=== PATIENT | female | born 2005 | race Two or more races ===

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

== ENCOUNTER 2024-02-18 11:01 | Emergency (ER) | payer OTHER, SELFPAY ==
[2024-02-18 11:04] VITALS: BP 157/48; PULSE 78; RESP 16; TEMP 36.2; O2SAT 100; BMI 37.6
--- NOTE | 2024-02-18 11:08 | ED_ITS ---
HPI - Female Genitourinary General Chief complaint: Skin/Abscess/Foreign Body Stated complaint: cyst Time Seen by Provider: 02/18/24 11:18 Source: patient, RN notes reviewed and old records reviewed Mode of arrival: ambulatory Limitations: no limitations History of Present Illness HPI Narrative: 18 year old female with no significant pmhx presents to the ED today for evaluation of vaginal cyst x2-3 days. Notes the cyst is isolated to the right labia. Admits to increase in size and pain over the last few days. She has been taking Motrin at home with little relief. Last dose last night. Endorses history of bartholin gland abscess 3-4 months ago which required I&D and outpatient antibiotic therapy [place]. Reports taking abx to completion. Reports this feels similar to previous abscess. Denies fevers, chills, dysuria, drainage from the cyst, hematuria vaginal discharge, vaginal lesions/ ulcers. Related Data Home Medications ?Medication ?Instructions ?Recorded ?Confirmed albuterol sulfate 90 mcg/actuation 2 puff inhalation Q6H PRN 02/22/22 06/15/22 aerosol inhaler cholecalciferol (vitamin D3) 50 50 mcg PO DAILY 02/22/22 06/15/22 mcg (2,000 unit) capsule Previous Rx's ?Medication ?Instructions ?Recorded ibuprofen 600 mg tablet 600 mg PO Q8H PRN pain #60 tabs 06/15/22 nystatin 100,000 unit/gram topical 1 appl topical BID #30 grams 05/05/23 powder cephalexin 500 mg capsule 500 mg PO QID 10 days #40 caps 02/18/24 Allergies Allergy/AdvReac Type Severity Reaction Status Date / Time Penicillins [PENICILLINS] Allergy Mild HIVES Verified 02/18/24 11:08 Review of Systems Review of Systems: Constitutional: No fever, chills, fatigue, night sweats, weight changes ENT/Mouth: No ear pain, hearing loss, nasal congestion, sinus pain, rhinorrhea, sore throat Eyes: No eye pain, swelling, redness, vision changes, discharge Cardio: No chest pain, palpitations, RAMIREZ, orthopnea, peripheral edema Pulm: No SOB, cough, sputum, wheezing, dyspnea, hemoptysis GI: No nausea, vomiting, hematemesis, abdominal pain, diarrhea, constipation, hematochezia, melena : No irregular bleeding, dysuria, frequency, urgency, hesitancy, hematuria, flank pain, urinary flow changes, urinary incontinence or retention, +vaginal cyst MSK: No back pain, neck pain, joint pain, myalgias Skin: No lesions, rashes Neuro: No weakness, numbness, paresthesias, LOC, dizziness, headache Psych: No anxiety/panic, depression, SI/HI, AH/VH All other systems reviewed and are negative. [facility] Past Medical History Attestation statement: The following information was validated with the patient. Source: old records reviewed and nursing notes reviewed Medical History Asthma Social History Social History Household Members Other:: mom Housing: Apartment Patient Tobacco Use Status: Never used Tobacco Advance Directives: No Advance Directives Information Provided: Yes Do you have a plan to hurt others: No Plan Physical Exam Vital Signs: Vital Signs: Last Vital Signs Temp 98.4 F 02/18/24 15:05 Pulse 82 02/18/24 15:05 Resp 16 02/18/24 15:05 BP 112/69 02/18/24 15:05 Pulse Ox 97 02/18/24 15:05 O2 Del Method Room Air 02/18/24 15:05 BMI result Body Mass Index 37.6 Vital signs stable. afebrile. Const: General: cooperative, healthy appearing, comfortable and no acute distress Orientation/consciousness: patient oriented x3 Limitations: no limitations HEENT: Head: Yes normal to inspection, Yes No palpable skull fracture present, Yes normocephalic and Yes atraumatic Eyes: General: appearance normal, both eyes and all related structures Pupils: Equal, round and reactive pupils present Neck: Neck: Yes normal visual inspection Resp: Effort & Inspection: normal respiratory effort and able to speak in complete sentences Auscultation: clear to auscultation bilaterally Cardio: Rate: regular rate Rhythm: regular rhythm GI: Inspection: Yes normal to inspection : Other: + Shanda Thao RN in room during sensiti ve exam + External genitalia with 4cm enlarged m ass and overlying erythema/ warmth noted to posterior aspect of right labia. ttp. fluctuant. General: Yes no CVA tenderness Back/Spine/Pelvis: Back: no CVA tenderness Skin: General skin exam: no rashes or lesions noted Neuro: General: patient oriented x3 and gait normal Cranial nerves: Yes Equal, round and reactive pupils present Course Course Course Narrative: This is an RME performed by Shanta Albarran CNP: Additional HPI, ROS, PE not included below will be deferred to primary provider. Patient is a 18-year-old female who presents emergency department for evaluation of a reported recurrent Bartholin cyst on the right side. Reports incision and drainage approximately 3 or 4 weeks ago out of state, with recurrence over the past 2-3 days. Physical exam: Deferred in triage Plan: Placed in waiting room pending bed availability Reevaluation(s) Reevaluation #1: 8410-- Incision and drainage performed on right Bartholin gland abscess. 10 mL of lidocaine injected into the area. 2 cm linear incision made with immediate expression of purulent discharge. All discharge expressed from incision site. I was able to express approx 10ccs of purulent drainage. Abscess explored and all loculations broken. The area was irrigated extensively and left open. Patient tolerate procedure well. Routine swab/ gram stain sent to lab. Advised patient that we will call her if the antibiotic needs to be adjusted. Will give patient dose of Keflex in ED and send course to pharmacy. She does have a non- anaphylactic penicillin allergy however states that she has previously tolerated keflex. Patient has remained stable throughout ED visit today. Discussed worrisome signs and symptoms and when to return to the ED. All questions answered at this time. Patient is agreeable with disposition and stable for discharge. Medications Administered Discontinued Medications Generic Name Dose Route Start Last Admin Trade Name Sofía PRN Reason Stop Dose Admin Acetaminophen 975 mg 02/18/24 12:16 02/18/24 12:29 Acetaminophen 325 Mg Tablet PO 02/18/24 12:17 975 mg ONCE ONE Administration Cephalexin HCl 500 mg 02/18/24 14:45 02/18/24 14:59 Cephalexin 500 Mg Capsule PO 02/18/24 14:46 500 mg ONCE ONE Administration Lidocaine HCl 5 ml 02/18/24 12:15 02/18/24 12:31 Lidocaine Hcl 1 % Mpf 5 Ml Vial INFILTRATI 02/18/24 12:16 5 ml ONCE ONE Administration Lidocaine HCl 5 ml 02/18/24 12:16 02/18/24 12:31 Lidocaine Hcl 1 % Mpf 5 Ml Vial INFILTRATI 02/18/24 12:17 5 ml ONCE ONE Administration Lorazepam 0.5 mg 02/18/24 12:15 02/18/24 12:29 Lorazepam 0.5 Mg Tablet PO 02/18/24 12:16 0.5 mg ONCE ONE Administration Medical Decision Making Medical Decision Making MDM Narrative: 18 year old female with no significant pmhx presents to the ED today for evaluation of vaginal cyst x2-3 days. Vital signs are stable. She is nontoxic appearing and in NAD. Lying comfortably on the exam bed. On exam, external genitalia with 4cm enlarged mass and overlying erythema/ warmth noted to posterior aspect of right labia. ttp. fluctuant. Abdomen is soft, ND/NT. no rebound or gaurding. Differential diagnosis includes bartholin cyst, bartholin abscess, cellulitis. Unlikely UTI, herpes simplex, herpes zoster, syphillis, vaginitis, malignancy, hematoma, genital warts. Plan for I&D. Differential Diagnosis Differential Diagnoses: The differential diagnosis associated with the presentation includes as above. Admission/Observation not indicated. Independent Historian Clinical information obtained from an independent historian. History obtained from or confirmed by: Parent (mother) and Other (brother) External Record Review External record reviewed: Inpatient record Prescription Management I considered prescription management with: Pain Medication and Antibiotic (keflex) Social Determinants Patient?s care significantly limited by Social Determinants of Health including: Other Social Determinant of Health Procedures Abscess I/D Site: bartholin's gland Side (if applicable): right Local Anesthetic: lidocaine 1% Amount of anesthesia used (mL): 10 Technique: incised with blade Amount of fluid expressed (mL): 10 Sent for culture/gram staining?: Yes Irrigation: Yes Packing used?: none Critical Care Time Critical Care Time Critical Care Time: No Discharge Plan Discharge Clinical Impression: Abscess of right Bartholin's gland, Encounter for incision and drainage procedure Patient Disposition: Home, Self-Care Instructions: Abscess (ED), Incision and Drainage (ED) Additional Instructions: You were evaluated in the ED today for Bartholin gland abscess. The abscess was drained. A swab of the drainage was sent to the lab for further testing. You will be called with any positive or concerning results. The area was left open to allow for further healing/ drainage. Continue to wear feminine pads to catch any further drainage. You were given one dose of Keflex in the ED. This is an antibiotic. Take this 4 times daily for the next 7 days for infection. Please take this with food. Take this to completion. Make sure you are applying warm compresses/soaks to the area to help with healing/ drainage. Take tylenol and ibuprofen at home for pain/ discomfort. Follow up with OBGYN as cyst will likely have to be removed. Follow up with PCP as needed. Return to the ED with new or worsening symptoms such as fever, chills, nausea or vomiting, increased redness or pussy drainage from the site. In the case of an emergency call 911. Prescriptions: New cephalexin 500 mg capsule 500 mg PO QID 10 Days Qty: 40 0RF No Action nystatin 100,000 unit/gram powder 1 appl topical BID Qty: 30 0RF cholecalciferol (vitamin D3) 50 mcg (2,000 unit) capsule 50 mcg PO DAILY albuterol sulfate 90 mcg/actuation HFA aerosol inhaler 2 puff inhalation Q6H PRN ibuprofen 600 mg tablet 600 mg PO Q8H PRN (Reason: pain) Qty: 60 1RF Referrals: Zaina Clark MD [Primary Care Provider] - Stand Alone Forms: Work/School Release Interventions: ED Discharge Assessment Last Done: 02/18/24 15:35 Discharge Date/Time: 02/18/24 15:36 Print Language: Sami
[2024-02-18] MEDS: Acetaminophen 325 MG TABLET 975 MG PO (12:29)
[2024-02-18] MEDS: LORazepam 0.5 MG TABLET PO (12:29)
[2024-02-18] MEDS: Lidocaine HCl 1 % MPF 5 ML VIAL INFILTRATI ×2 (12:31)
[2024-02-18] MEDS: cephALEXin 500 MG CAPSULE PO (14:59)
[2024-02-18 15:05] VITALS: BP 112/69; PULSE 82; RESP 16; TEMP 36.9; O2SAT 97
[2024-02-18 15:35] VITALS: BP 112/69; PULSE 82; RESP 16; TEMP 36.9; O2SAT 97
== END 2024-02-18 15:36 | disposition home or self-care (01) ==
PROVIDERS: Emergency Provider Emergency Medicine; PCP Internal Medicine
DX: N75.1 Abscess of Bartholin's gland (principal); Z88.0 Allergy status to penicillin
CPT/HCPCS: 56420; 87070; 87205; 99283; 99284

== ENCOUNTER 2024-11-17 18:04 | Emergency (ER) | payer OTHER, SELFPAY ==
--- OUTSIDE RECORDS SUMMARY | 2024-11-17 20:08 | XMS_ITS | Encounter Summary ---
Author Organization [facility] Address [address] [place] [address] Phone Care Team Providers Care Laser Systems Engineer Name Role Phone Provider, Pnada RIDDLE Primary Care Provider [phone] Encounter Details Date Type Department Care Team (Late st Contact Info) Description 06/29/2012 Documentation EM Family Medicine [address] [place] [address] Family Medicine, Physician [address] [place] [address] Social History Tobacco Use Types Packs/Day Years Used Date Smoking Tobacco: Never Assessed Comments Unknown Sex and Gender Information Value Date Recorded Sex Assigned at Female 04/24/2020 12:36 PM EDT Legal Sex Female 5:06 PM EDT Gender Identity Female 04/24/2020 12:36 PM EDT Sexual Orientation Straight 04/24/2020 12 :36 PM EDT documented as of this encounter Plan of Treatment Not on file documented as of this encounter Visit Diagnoses Not on filedocumented in this encounter Care Teams Laser Systems Engineer Relationship Specialty Start Date End Date Provider, MD [address] [place] [address] PCP - General Pediatrics 11/14/22 05/09/24 documented as of this encounter
--- OUTSIDE RECORDS SUMMARY | 2024-11-17 20:08 | XMS_ITS | Clinical Summary ---
Author Organization [address] Address [address] [place] [address] Phone Care Team Providers Care Veterinary Microbiologist Name Role Phone Physician, No Pcp Primary Care Provider Unavaila ble Allergies Active Allergy Reactions Criticality Noted Date Comments Penicillin V Hives 10/23/2024 Hard to breathe Medications Medication Sig Dispensed Refills Start Date End Date Status clotrimazole (LOTRIMIN) 1 % cream Apply 1 Application topically 2 (two) times a day. APPLY TO AFFECTED AREA 09/21/2024 Active vitamin iron fum-folic acid 27-0.8 mg per tablet Take 1 tablet by mouth 1 (one) time each day. Active folic acid-vitamin B complex-vitamin X-uhwiebpd-gxpt (DIALYVITE) 3-70-15 mg-mcg-mg tablet Take 1 tablet by mouth 1 (one) time each day. Active Encounters Date Type Department Care Team Description 10/23/2024 10:45 AM EST Office Visit Obstetrics and Gynecology [address] [phone] Lory Crockett CNM 11 weeks gestation of (Primary Dx); Missed period from Last 3 Months Social History Tobacco Use Types Packs/Day Years Used Date Smoking Tobacco: Never Smokeless Tobacco: Never Alcohol Use Standard Drinks/Week Comments Not Currently 0 (1 standard drink = 0.6 oz pur e alcohol) before Estimated Date of Delivery Comme nts Yes 05/13/2025 Sex and Gender Information Value Date Recorded Sex Assigned at Not on file Gender Identity Not on file Sexual Orientation Not on file Job Start Date Occupation Industry Not on file Not on file Not on file Obstetrics History Para Term AB IAB SAB Ectopic Multiple Livin g Live Births 1 Date Outcome GA Total Labor Labor/2nd/3rd Weight Sex Type Anes PTL Jennifer A1 A5 Name Clin Current Last Filed Vital Signs Vital Sign Reading Time Taken Comments Blood Pressure 125/71 10/23/2024 11:05 AM EST Pulse 81 10/23/2024 11:05 AM EST Temperature - - Respiratory Rate 14 10/23/2024 11:0 5 AM EST Oxygen Saturation - - Inhaled Oxygen Concentration - - Weight 86.1 kg (189 lb 12.8 oz) 025 11:05 AM EST Height 151.1 cm (4' 11.5 ) 10/23/2024 1 1:05 AM EST Body Mass Index 37.69 10/23/2024 11:05 AM EST Plan of Treatment Health Maintenance Due Date Last Done Comments Gonorrhea/Chlamydia Screening 2004 Pneumococcal Vaccine: Pediatrics (0 to 5 Years) and At-Risk Patients (6 to 64 Years) (1 of 1 - PPSV23 or PCV20) 02/24/2010 09/30/2005, 2004, 2004, Additional history exists COVID-19 Vaccine ( - season) 2024 Influenza Vaccine (#1) 2024 8, 08/25/2016, 08/14/2015, Additional history exists Annual Well Child Visit (3-21 years old) 09/27/2024 04/26/2021, 04/24/2020, 03/22/2019, Additional history exists Depression Screening 09/27/2024 HIV Screening 09/27/2024 Hepatitis C Screening 09/27/2024 Social Influencers of Health Screening 09/27/2024 DTaP,Tdap,and Td Vaccines (7 - Td or Tdap) 08/14/2025 08/14/2015, 04/21/2009, 09/30/2005, Additional history exists Hepatitis B Vaccines Completed 2004, 2004, 2004, Additional history exists HIB Vaccines Completed 09/30/2005, 09/15, 2004, Additional history exists IPV Vaccines Completed 04/21/2009, 09/15, 2004, Additional history exists Hepatitis A Vaccines Completed 08/14/2015, 08/14/20 14 HPV Vaccines Completed 11/09/2017, 08/25/2016 Meningococcal ACWY Vaccine Completed 04/24/2020, RSV Immunization Patients Under 20 months Aged Out No longer eligible based on patient's age to complete this topic Procedures Procedure Name Priority Date/Time Associated Diagnosis Comments POC , URINE DIAGNOSTIC Routine 10/23/2024 11:08 AM EST Missed period from Last 3 Months Results * (ABNORMAL) POC , urine manually resulted (10/23/2024 11:08 AM EST) HCG, Ur POC Positive(A ) Negative POC hCG Int QC Pass? Yes Yes Urine Urine specimen obtained by clean catch procedure / Unknown 10/23/2024 11:08 AM EST Lory Bon SPANGLER POINT OF CARE TEST E NTER/EDIT ORDERABLES from Last 3 Months Care Teams Veterinary Microbiologist Relationship Specialty Start Date End Date Physician, No Pcp PCP - General 09/27/24
--- OUTSIDE RECORDS SUMMARY | 2024-11-17 20:08 | XMS_ITS | Encounter Summary ---
Author Organization [facility] Address [address] [place] [address] Phone Care Team Providers Care [facility] Sales Name Role Phone Provider, Panda RIDDLE Primary Care Provider [phone] Encounter Details Date Type Department Care Team (Late st Contact Info) Description 06/29/2012 Documentation EM Family Medicine [address] [place] [address] Family Medicine, Physician [address] [place] [address] Social History Tobacco Use Types [...] on filedocumented in this encounter Care Teams [facility] Sales Relationship Specialty Start Date End Date Provider, MD [address] [place] [address] PCP - General Pediatrics 11/14/22 05/09/24 documented as of this encounter
--- OUTSIDE RECORDS SUMMARY | 2024-11-17 20:09 | XMS_ITS | Continuity of Care Document ---
Author Organization [facility] ter Address [address] [place] [address]- Care Team Providers Care Guinea Pig Breeder Name Role Phone Not on Staff, PCP Primary Care Physician Unavail able Encounter [facility] ACCT R [id number] Date(s): 11/15/24 - 11/15/[address] [address]- Discharge Disposition: A-D/C Home Attending Physician: Alondra Plascencia MD Admitting Physician: Alondra Plascencia MD Referring Physician: Not on Staff, Referring MD Encounter Type: Disch ES Allergies, Adverse Reactions, Alerts Substance Criticality Severity Reaction Reaction Severity Status penicillins Active Medications lidocaine 0.5% topical gel 1 application, Topically, 2 times a day, use as needed and prior to your appt, # 120 Gm, 0 Refills,Maintenance, 11/15/24 8:00:00 PM EST, Gel, [id number], Partial fill upon patient request if the prescription is for a schedule II opioid drug., 1 application Topically 2 times a day,Instr:use as needed and prior to your appt, 158, cm, 11/15/24 13:48:00 EST, Height, 87.6, kg, 11/15/24 13:48:00 EST, Dry Weight Start Date: 11/15/24 Status: Ordered Quantity: 120.0 Unit: g Repeat number: 1 Multivitamins with Folic Acid 0.4 mg oral tablet 1 tablet, By Mouth, Daily, # 100 tablet, 0 Refills, Maintenance, 09/21/24 5:04:00 PM EST, Tablet, [id number], Partial fill upon patient request if the prescription is for a schedule II opioid drug., 1 tablet By Mouth Daily, 157, cm, 09/21/24 14:05:00 EST, Height, 84, kg, 09/21/24 14:05:00 EST, Dry Weight Start Date: 09/21/24 Status: Ordered Quantity: 100.0 Unit: tablet Repeat number: 1 Multivitamins with Folic Acid 1 mg oral tablet 1 tablet, By Mouth, Daily, # 100 tablet, 2 Refills, Maintenance, 10/03/24 11:01:00 AM EST, [facility] #[id number], Partial fill upon patient request if the prescription is for a schedule II opioid drug.,1 tablet By Mouth Daily, 157, cm, 09/21/24 17:27:00 EST, Height, 84, kg, 09/21/24 17:27:00 EST, DryWeight Start Date: 10/03/24 Status: Ordered Quantity: 100.0 Unit: tablet Repeat number: 3 Vitamin D3 2000 intl units oral capsule 1 capsule = 50 mcg, By Mouth, Daily, # 90 capsule, 1 Refills, Maintenance, 10/07/24 4:33:00 PM EST,[facility] #[id number], Partial fill upon patient request if the prescription is for a schedule II opioid drug., 157, cm, 10/03/24 12:04:00 EST, Height, 83.3, kg, 10/03/24 12:00:00 EST, Dry Weight Start Date: 10/07/24 Status: Ordered Quantity: 90.0 Unit: capsule Repeat number: 2 Indication: Vitamin D deficiency, unspecified Problem List Condition Confirmation Course Effective Dates Status Health St atus Informant Asthma Confirmed Active H/O Exposure to STD Confirmed Active H/O Abdominal cramping Confirmed Active H/O vitamin D deficiency Confirmed Active H/O Anxiety and depression Confirmed Active Obese class I Confirmed Active Vital Signs Most recent to oldest [Reference Range]: 1 2 Height 158 cm (11/15/24 1:48 PM) Weight 87.6 kg (11/15/24 1:48 PM) Oxygen Saturation [94-100 %] 100 % (11/15/24 6:59 PM) 100 % (11/15/24 1:48 PM) Pulse Rate [55-90 bpm] 95 bpm *H* (11/15/24 6:59 PM) 80 bpm (11/15/24 1:48 PM) Body Mass Index [18.5-24.99 kg/m2] 35.09 kg/m2 *>HHI* (11/15/24 1:48 PM) Blood Pressure [90-138/55-84 mm Hg] 117/ 71mm Hg (11/15/24 6:59 PM) 120/68mm Hg (11/15/24 1:48 PM) Respiratory Rate [16-30 br/min] 16 br/mi n (11/15/24 6:59 PM) 18 br/min (11/15/24 1:48 PM) Temperature [96.8-100.4 DegF] 98.6 DegF (11/15/24 1:48 PM) Mode of Delivery (Oxygen) Room air (11/15/24 6:59 PM) Room air (11/15/24 1:48 PM) Blood pressure sites Arm, left (11/15/24 6:59 PM) Arm, left (11/15/24 1:48 PM) Temperature Route Oral (11/15/24 1:48 PM) Dry Weight 87.6 kg (11/15/24 1:48 PM) Weight Obtained Via Patient/family state d (11/15/24 1:48 PM) Dry Weight Obtained Via Patient/family s tated (11/15/24 1:48 PM) Social History Social History Type Response Smoking Status Never (less than 100 in lifetime) entered on: 10/03/24 Sex Female Sex Representation Female (finding) Consult note * Amando Lewis DO: PERFORM Event Display: Consult Authored Date: [id number] Patient: ??THEN, DARIEL ? Age:??19 Years?Sex:??Female?:??2005?? Referring Provider Urbano Jones PA-C Chief Complaint Painful labial mass, right History of Present Illness Dariel??Then??is a 19-year-old G1, P0 at 14 weeks and 3 days gestation??who presented to the emergency department??today for a chief concern of a right labial??mass.?? The emergency department consulted the GENERAL HOUSE WORKER team. ??This note serves as that consult.?? Patient reports that she noticed??her??rightlabial mass present??yesterday night.?? She describes it as a Bartholin's cyst.?? She is confident that is what it is as she has had it twice??before,??once in 2022 and once in 2023.?? Both times, the mass was??incised??and drained.?? Patient states that??she??is??being proactive in??managing this mass this time.?? She reports that she tried a sitz bath last night and Tylenol without relief.?? .Sh e??denies vaginal bleeding or??intense abdominal cramping. ??She also denies fever??and flulike symptoms.?? She endorses mild white vaginal discharge. ??Overall, she reports she is doing well. Review of Systems 14-point ROS is negative except for what is mentioned in the HPI. Physical Exam Vitals & Measurements T:??98.6?F?? HR:??80??(Peripheral)?? RR:??18?? BP:??120/68?? SpO2:??100%?? HT:??158??cm?? WT:??87.6??kg?? BMI:??35.09?? Constitutional: Well-nourished, well-developed. No acute distress. Alert and oriented to person, place, and time. HEENT: Head normocephalic, atraumatic. External ears and nose are unremarkable. Cardiovascular: Chest is symmetric, with no visible pulsations or deformities. Pulmonary: Breathing is unlabored. Good air movement.?? Gastrointestinal: Abdomen is non-tender and non-distended. No rebound or guarding. Gravid uterus. Pelvic: Left labia appear normal. Right labium majora with a Bartholin's cyst just lateral to the introitus. Appears to be 2-3 cm. Fluctuant. Nontender. No purulence or bleeding from cyst. Painful topalpation. Mild erythema and edema surrounding the mass. Musculoskeletal: Bilateral upper and lower extremities are without deformity.?? Psychiatric: Alert and cooperative. Mood, affect, and speech are congruent and stable. Assessment/Plan Assessment:? Dariel??Then??is a 19-year-old at 14 weeks and 3 days gestation??who presented to the emergency department with a right labial??mass that is likely a Bartholin's abscess. ?? This note serves as a consult from the OBGYN team. The patient was signed out to the night team andwill be staffed with an attending to develop a plan. Communicated this to ED provider, Urbano Jones PA-C. ?? Bartholin cyst (N75.0):? - Patient with small Bartholin cyst on physical exam. - Discussed excision vs. no intervention. - Patient amenable to I&D if appropriate. - Ultimately hoping for excision of gland, though expressed to patient this would be something thatcould be pursued after her and when the gland wasn't actively infected. ?? 14 weeks gestation of (Z3A.14):? - Continue routine obstetric care. -??Return precautions reviewed with patient including vaginal bleeding and intense abdominal cramping. ?? OB History History?(0,0,0,0)?No previous pregnancies history have been recorded Problem List/Past Medical History Ongoing Asthma H/O Abdominal cramping H/O Anxiety and depression H/O Exposure to STD H/O vitamin D deficiency Obese class I Procedure/Surgical History None Home Medications Cholecalciferol: 50 mcg = 1 capsule, By Mouth, Daily Multivitamin, : 1 tablet, By Mouth, Daily Multivitamin, : 1 tablet, By Mouth, Daily Allergies penicillins Social History Alcohol Use: Never. Electronic Cigarette/Vaping Electronic Cigarette Use: Never. Employment/School Status: Employed. Home/Environment Living situation: Home/Independent. Lives with: Father. Sexual Sexually involved in last 6 months: Yes. Substance Abuse Use: Past. Type: Marijuana. Tobacco Use: Never (less than 100 in lifetime). Family History Mother: Heart; Thyroid * Kike RIDDLE, Vicky: PERFORM Event Display: Consult Authored Date: Signout provided by Dr. Lewis. Met pt at bedside and discussed management options for Bartholin's cyst including conservative management with Sitz bath/tylenol. The patient wanted to proceed with incision/drainage and possible Word catheter placement. We discussed the risk/benefit/alternative (conservative management) of this. Discussed risk of pain/bleeding/infection/damage to nearby structuresand possible re-accumulation of cyst. We discussed that if outside of , may consider marsupialization but would not recommend this in . ?? An FH was checked and noted to be normal prior to the procedure. Cyst palpated and noted to be 2-3cm on R side. ?? Procedure: Ativan given for anxiety Chlorhexidine swabs to??area of intended incision??x3 5cc lidocaine injected 2mm incision with #11 blade made in area approx 1cm from hymen with no return of pus, just blood. Entry distal to ideal location and decision made to incise closer to hymenal ring 3mm incision with #11 blade over the center of cyst within vaginal mucosa with drainage of blood and minimal pus Word catheter not placed due to small size. Superficial wound culture obtained. Patient did not tolerate procedure well due to anxiety and anticipation of pain. Bleeding stopped with pressure. ?? Patient instructed to continue with sitz baths and conservative measures at home. No abx indicated.Message sent for follow up in [facility] in one week for further evaluation. Lidocaine gel sent to pharmacy. Recommendations and signout given to ED provider. Patient and partner in agreement with plan of care. She has a safe ride home with her partner. ?? Seen/discussed/examined with Dr. Ernesto Guardado Patient Care team information Care Team Personnel Name: Not on Staff, PCP Position: S Physician (General Medicine) Member Role: PCP Care Team Related Persons Name: YOGESH COATES Insurance Providers Guarantor name: [employer]TE Health Plan Information #: 1 Payer: BLUE B[employer]EFIT [employer] PPO Member Number: [id number] Policy Number: NA Group Number: [id number] Health Plan Information #: 2 Payer: [employer]UE [employer]EFIT [employer] PPO Member Number: [id number] Policy Number: NA Group Number: [id number]
--- OUTSIDE RECORDS SUMMARY | 2024-11-17 20:09 | XMS_ITS | Encounter Summary ---
Author Organization [facility] Address [address] [place] [address] Phone Care Team Providers Care Equipment Operator/Laborer/Supervisor Name Role Phone Provider, Panda RIDDLE Primary Care Provider [phone] Encounter Details Date Type Department Care Team (Late st Contact Info) Description 11/17/2016 Documentation EM Family Medicine [address] [place] [address] Family Medicine, Physician [address] [place], [place] [id number] Social History Tobacco Use Types Packs/Day Years Used Date Smoking Tobacco: Never Comments:Never smoker Comments Unknown Sex and Gender Information Value [...] on filedocumented in this encounter Care Teams Equipment Operator/Laborer/Supervisor Relationship Specialty Start Date End Date Provider, MD Panda [address] [place] [address] PCP - General Pediatrics 11/14/22 05/09/24 documented as of this encounter
--- OUTSIDE RECORDS SUMMARY | 2024-11-17 20:09 | XMS_ITS | Encounter Summary ---
Author Organization [facility] Address [address] [place] [address] Phone Care Team Providers Care Flat Polisher Name Role Phone Provider, Panda RIDDLE Primary Care Provider [phone] Encounter Details Date Type Department Care Team (Late st Contact Info) Description 06/27/2011 Documentation EM Family Medicine [address] [place] [address] Family Medicine, Physician [address] [place] [address] Social History Tobacco Use Types [...] on filedocumented in this encounter Care Teams Flat Polisher Relationship Specialty Start Date End Date Provider, MD Panda [address] [place] [address] PCP - General Pediatrics 11/14/22 05/09/24 documented as of this encounter
--- OUTSIDE RECORDS SUMMARY | 2024-11-17 20:09 | XMS_ITS | Encounter Summary ---
Author Organization [facility] Address [address] [place] [address] Phone Care Team Providers Care Surfboard Maker Name Role Phone Provider, Panda RIDDLE Primary Care Provider Encounter Details Date Type Department Care Team (Late st Contact Info) Description 02/09/2015 Documentation EM Family Medicine [address] [place] [address] Family Medicine, Physician [address] [place] [address] Social History Tobacco Use Types [...] on filedocumented in this encounter Care Teams Surfboard Maker Relationship Specialty Start Date End Date Provider, MD Panda [address] [place] [address] PCP - General Pediatrics 11/14/22 05/09/24 documented as of this encounter
--- OUTSIDE RECORDS SUMMARY | 2024-11-17 20:09 | XMS_ITS | Encounter Summary ---
Author Organization [facility] Address [address] [place] [address] Phone Care Team Providers Care Fire Management Specialist Name Role Phone Provider, Panda RIDDLE Primary Care Provider [phone] Encounter Details Date Type Department Care Team (Late st Contact Info) Description 08/26/2016 Documentation EM Family Medicine [address] [place] [address] Family Medicine, Physician [address] [place] [address] Social History Tobacco Use Types [...] on filedocumented in this encounter Care Teams Fire Management Specialist Relationship Specialty Start Date End Date Provider, MD Panda [address] [place] [address] PCP - General Pediatrics 11/14/22 05/09/24 documented as of this encounter
--- OUTSIDE RECORDS SUMMARY | 2024-11-17 20:09 | XMS_ITS | Encounter Summary ---
Author Organization [facility] Address [address] [place] [address] Phone Care Team Providers Care Pest Control Operator Name Role Phone Provider, Panda RIDDLE Primary Care Provider [phone] Encounter Details Date Type Department Care Team (Late st Contact Info) Description 08/20/2015 Documentation EM Family Medicine [address] [place] [address] Family Medicine, Physician [address] [place] [address] Social History Tobacco Use Types [...] on filedocumented in this encounter Care Teams Pest Control Operator Relationship Specialty Start Date End Date Provider, MD Panda [address] [place] [address] PCP - General Pediatrics 11/14/22 05/09/24 documented as of this encounter
--- OUTSIDE RECORDS SUMMARY | 2024-11-17 20:09 | XMS_ITS | Encounter Summary ---
Author Organization [facility] Address [address] [place] [address] Phone Care Team Providers Care Drier Belt Conveyor Name Role Phone Provider, Panda RIDDLE Primary Care Provider [phone] Encounter Details Date Type Department Care Team (Late st Contact Info) Description 08/18/2015 Documentation EM Family Medicine [address] [place] [address] Family Medicine, Physician [address] [place] [address] Social History Tobacco Use Types [...] on filedocumented in this encounter Care Teams Drier Belt Conveyor Relationship Specialty Start Date End Date Provider, MD Panda [address] [place] [address] PCP - General Pediatrics 11/14/22 05/09/24 documented as of this encounter
--- OUTSIDE RECORDS SUMMARY | 2024-11-17 20:09 | XMS_ITS | Encounter Summary ---
Author Organization [facility] Address [address] [place] [address] Phone Care Team Providers Care Metal Model Builder Name Role Phone Provider, Panda RIDDLE Primary Care Provider [phone] Encounter Details Date Type Department Care Team (Late st Contact Info) Description 06/29/2012 Documentation EM Family Medicine [address] [place] [address] Family Medicine, Physician [address] [place] [address] Social History Tobacco Use Types [...] on filedocumented in this encounter Care Teams Metal Model Builder Relationship Specialty Start Date End Date Provider, MD Panda [address] [place] [address] PCP - General Pediatrics 11/14/22 05/09/24 documented as of this encounter
--- OUTSIDE RECORDS SUMMARY | 2024-11-17 20:09 | XMS_ITS | Encounter Summary ---
Author Organization [facility] Address [address] [place] [address] Phone Care Team Providers Care Interactive Digital Media Specialist Name Role Phone Provider, Panda RIDDLE Primary Care Provider [phone] Encounter Details Date Type Department Care Team (Late st Contact Info) Description 06/01/2017 Conversion Encounter [facility] [address] [place], [place] [id number] Social History Tobacco Use Types Packs/Day Years [...] on filedocumented in this encounter Care Teams Interactive Digital Media Specialist Relationship Specialty Start Date End Date Provider, MD Panda [address] [place] [phone] PCP - General Pediatrics 11/14/22 05/09/24 documented as of this encounter
--- OUTSIDE RECORDS SUMMARY | 2024-11-17 20:09 | XMS_ITS | Encounter Summary ---
Author Organization [facility] Address [address] [place] [address] Phone Care Team Providers Care Music Publicist Name Role Phone Provider, Panda RIDDLE Primary Care Provider [phone] Encounter Details Date Type Department Care Team (Late st Contact Info) Description 12/07/2011 Documentation EM Family Medicine [address] [place] [address] Family Medicine, Physician [address] [place] [address] Social History Tobacco Use Types [...] on filedocumented in this encounter Care Teams Music Publicist Relationship Specialty Start Date End Date Provider, MD Panda [address] [place] [address] PCP - General Pediatrics 11/14/22 05/09/24 documented as of this encounter
--- OUTSIDE RECORDS SUMMARY | 2024-11-17 20:09 | XMS_ITS | Encounter Summary ---
Author Organization [facility] Address [address] [place] [address] Phone Care Team Providers Care Upper Inspector Name Role Phone Provider, Panda RIDDLE Primary Care Provider [phone] Encounter Details Date Type Department Care Team (Late st Contact Info) Description 08/26/2016 Documentation EM Family Medicine [address] [place] [address] Family Medicine, Physician [address] [place] [address] Social History Tobacco Use Types [...] on filedocumented in this encounter Care Teams Upper Inspector Relationship Specialty Start Date End Date Provider, MD Panda [address] [place] [address] PCP - General Pediatrics 11/14/22 05/09/24 documented as of this encounter
--- OUTSIDE RECORDS SUMMARY | 2024-11-17 20:09 | XMS_ITS | Continuity of Care Document ---
Author Organization [facility] Address [address] [place] [address]- Care Team Providers Care Bi Data Modeler Name Role Phone Cross Mary RIDDLE Primary Care Physician Unavaila ble Encounter [facility] Date(s): 10/07/24 - 11/06/24 [facility] [place] [facility] [address] [place], [place] [address] Encounter Type: Triage Allergies, Adverse Reactions, Alerts Substance Criticality Severity Reaction Reaction Severity Status penicillins Active Medications Multivitamins with Folic Acid 0.4 mg oral tablet 1 tablet, By Mouth, Daily, # 100 tablet, 0 Refills, Maintenance, 09/21/24 5:04:00 PM EST, Tablet, [id number], Partial fill upon patient request if the [...] 2 Refills, Maintenance, 10/03/24 11:01:00 AM EST, [id number], Partial fill upon patient request if the [...] capsule, 1 Refills, Maintenance, 10/07/24 4:33:00 PM EST,[id number], Partial fill upon patient request if the [...] Confirmed Active Obese class I Confirmed Active Social History Social History Type Response Smoking Status Never (less than 100 in lifetime) entered on: 10/03/24 Sex Female Sex Representation Female (finding) Patient Care team information Care Team Related Persons Name: YOGESH COATES Insurance Providers Guarantor name: [employer] Health Plan Information #: 1 Payer: BLUE BENEFIT [employer] PPO Member Number: SUZETTE Policy Number: SUZETTE Group Number: [id number]
--- OUTSIDE RECORDS SUMMARY | 2024-11-17 20:09 | XMS_ITS | Encounter Summary ---
Author Organization [facility] Address [address] [place] [address] Phone Care Team Providers Care Musical Engineer Name Role Phone Provider, Panda RIDDLE Primary Care Provider [phone] Encounter Details Date Type Department Care Team (Late st Contact Info) Description 06/27/2011 Documentation EM Family Medicine [address] [place] [address] Family Medicine, Physician [address] [place] [address] Social History Tobacco Use Types [...] on filedocumented in this encounter Care Teams Musical Engineer Relationship Specialty Start Date End Date Provider, MD Panda [address] [place] [address] PCP - General Pediatrics 11/14/22 05/09/24 documented as of this encounter
--- OUTSIDE RECORDS SUMMARY | 2024-11-17 20:10 | XMS_ITS | Encounter Summary ---
Author Organization [facility] Address [address] [place] [address] Phone Care Team Providers Care Stock Analyst Name Role Phone Provider, Panda RIDDLE Primary Care Provider [phone] Encounter Details Date Type Department Care Team (Late st Contact Info) Description 08/12/2013 Documentation EM Family Medicine [address] [place] [address] Family Medicine, Physician [address] [place] [address] Social History Tobacco Use Types [...] on filedocumented in this encounter Care Teams Stock Analyst Relationship Specialty Start Date End Date Provider, MD Panda [address] [place] [address] PCP - General Pediatrics 11/14/22 05/09/24 documented as of this encounter
--- OUTSIDE RECORDS SUMMARY | 2024-11-17 20:10 | XMS_ITS | Encounter Summary ---
Author Organization [facility] Address [address] [place] [address] Phone Care Team Providers Care Lift Driver Name Role Phone Provider, Panda RIDDLE Primary Care Provider [phone] Encounter Details Date Type Department Care Team (Late st Contact Info) Description 08/13/2013 Documentation EM Family Medicine [address] [place] [address] Family Medicine, Physician [address] [place] [address] Social History Tobacco Use Types [...] on filedocumented in this encounter Care Teams Lift Driver Relationship Specialty Start Date End Date Provider, MD Panda [address] [place] [address] PCP - General Pediatrics 11/14/22 05/09/24 documented as of this encounter
--- OUTSIDE RECORDS SUMMARY | 2024-11-17 20:10 | XMS_ITS | Encounter Summary ---
Author Organization [facility] Address [address] [place] [address] Phone Care Team Providers Care Director Of Audiology Name Role Phone Provider, Panda RIDDLE Primary Care Provider [phone] Encounter Details Date Type Department Care Team (Late st Contact Info) Description 02/19/2016 Documentation EM Family Medicine [address] [place] [address] Family Medicine, Physician [address] [place] [address] Social History Tobacco Use Types [...] on filedocumented in this encounter Care Teams Director Of Audiology Relationship Specialty Start Date End Date Provider, MD Panda [address] [place] [address] PCP - General Pediatrics 11/14/22 05/09/24 documented as of this encounter
--- OUTSIDE RECORDS SUMMARY | 2024-11-17 20:10 | XMS_ITS | Encounter Summary ---
Author Organization [facility] Address [address] [place] [id number] Phone Care Team Providers Care Project Assistant Name Role Phone Provider, Panda RIDDLE Primary Care Provider [phone] Encounter Details Date Type Department Care Team (Late st Contact Info) Description 08/15/2014 Documentation EM Family Medicine [address] [place] [address] Family Medicine, Physician [address] [place] [address] Social History Tobacco Use Types [...] on filedocumented in this encounter Care Teams Project Assistant Relationship Specialty Start Date End Date Provider, MD [address] [place] [address] PCP - General Pediatrics 11/14/22 05/09/24 documented as of this encounter
--- OUTSIDE RECORDS SUMMARY | 2024-11-17 20:10 | XMS_ITS | Clinical Summary ---
Author Organization [facility] Address [address] [place] [id number] Phone Care Team Providers Care Gate Technician Name Role Phone Unavailable Primary Care Provider Unavailabl e Allergies Active Allergy Reactions Criticality Noted Date Comments Environmental 11/09/2017 Penicillin V Medications Melatonin 3 MG capsule Take by mouth. Active PREVIDENT 5000 BOOSTER PLUS 1.1 % paste BRUSH TEETH TWO TIMES DAILY 0 06/03/2019 Active albuterol HFA (ProAir HFA) 108 (90 Base) MCG/ACT inhalerIndication s:Mild persistent asthma with acute exacerbation Use 2-6 puffs every 4-6 hours as needed 1 Units 09/30/2021 Active Flovent HFA 110 MCG/ACT inhalerIndication s:Mild persistent asthma with acute exacerbation Inhale 2 puffs 2 (two) times a day. Rinse mouth with water after use, do not swallow. 1 Units 5 09/30/2021 Active Active Problems Problem Noted Date Diagnosed Date Severe dysmenorrhea 04/26/2021 Assessment & Plan (04/29/2021 7:05 AM EDT): 7-10 days cant walk heavy lightheaded Sometime 2-3 x per month; RUTH periods Menstrual pills and ibuprofen Advise make a separate amt to discuss irregular and painful periods Anxiety 04/24/2020 Overview (04/24/2020[facility] & Plan (04/29/2021 7:10 AM EDT): Currently does not have a therapist; mom thinks that Allyson can use support and Allyson is a bit resistant to the idea; I have provide [facility] card and advise pt/mom to discuss together and decide if their is any readiness to try; +PHQ9 no SI no self harm Acne vulgaris 03/22/2019 Overview (04/24/2020): Mild to moderate comedonal and inflammatory facial05/04 - only using cetaphil Assessment & Plan (03/22/2019 3:35 PM EDT): Gentle cleanser, benzoyl peroxide 2.5 % gel, gentle moisturizer (non comedogenic) Start every other day with treatment, increase gradually up to BID if tolerated Return 8 weeks if not better Chalazion left upper eyelid 03/22/2019 Overview (03/22/2019): Since 2017. Assessment & Plan (03/22/2019 3:51 PM EDT): Observe if not causing any pain or vision difficulty. Refer to ophtho if symptomatic or if desired. Sleep disorder 03/22/2019 Overview (03/22/2019): Trouble falling asleep, trouble maintaining sleep, and trouble falling back to sleep. No relief with up to 3 mg melatonin. Assessment & Plan (04/29/2021 7:03 AM EDT): Trouble falling asleep, trouble maintaining sleep, and trouble falling back to sleep. No relief with up to 3 mg melatonin. Assessment & Plan (03/22/2019 3:55 PM EDT): The problem of recurrent insomnia is discussed. Avoidance of caffeine sources is strongly encouraged. Sleep hygiene issues are reviewed. Avoid screen time before bed. If no improvement in 4 weeks, return to reassess. Mild intermittent asthma without complication Overview (04/29/2021): Hx of Flovent 110 at times, occ albuterol use, uses spacer; lack of consistent used of ICS; pt report asthma fine right ; pt needs follow up for ACT asthma follow up Assessment & Plan (03/22/2019 3:42 PM EDT): Feels symptoms are well controlled. Using Flovent 110 2 puffs QD, some to most of the time, albuterol 2-6 puffs prn exacerbation, mostly with sports. Renewed meds. Follow up in 6 months. Overweight, pediatric, BMI 85.0-94.9 percentile for age 1008/09/2013 Overview (04/24/2020): 05/04 - has lost 20 pounds in the last year! Assessment & Plan (03/22/2019 3:52 PM EDT): Discussed healthy eating/exercise. Immunizations Name Administration Dates Next Due DTaP / Hep B / IPV 2004,2004 DTaP 5 04/21/2009,09/30/2005,2004 HPV Vaccine 9 Valent 11/09/2017,08/25/2016 Hep A, ped/adol 08/14/2015,08/14/2014 Hep B, ped/adol 2004,2004,2004 Hib (PRP-T) 09/30/2005, 4,2004,04/29 IPV 04/21/2009,2004 Influenza Split 08/09/2013,06/28/2012,06/24/2011 Influenza, injectable, quadrivalent 08/14/2015,1 Influenza, injectable, quadr ivalent, preservative free 11/09/2017,08/25/2016 Influenza, injectable, trivalent 07/21/2009,09/15,2004 MMR 04/21/2009,05/05/2005 Meningococcal B Trumenba 04/26/2021 Meningococcal Conj (Menactra) MCV4P 04/24/2020,1 Pneumococcal Conjugate 09/30/2005,2003,2004,04/29 Tdap 08/14/2015 Varicella 04/21/2009,05/05/2005 Family History Medical History Relation Name Comments ADD / ADHD Brother Eduardo Depression Brother Eduardo ADD / ADHD Father OCD Father Asthma Mother Shaniqua Deafness Mother Shaniqua Glaucoma Mother Shaniqua Hypertension Mother Shaniqua Migraines Mother Shaniqua Diabetes Sister Chinyere borderline Obesity Sister Chinyere Relation Name Status Comments Brother Eduardo Alive Brother: ADD/AD HD Father Alive Father: ADD/ADH D Mother Shaniqua Alive Mother: Deafnes s, Migraines, Hypertension, Asthma, Obesity Other No family histo ry of *Heart Disease, No family history of *Sudden /[place] under 55, No family history of *Thrombophilia, No family history of *CVA/Stroke Sister Chinyere Alive Sister: Obesity Social History Tobacco Use Types Packs/Day Years Used Date Smoking Tobacco: Never Smokeless Tobacco: Never Comments:Never smoker Alcohol Use Standard Drinks/Week Comments No 0 (1 standard drink = 0.6 oz pur e alcohol) Hunger/Food Answer Date Recorded In the last 12 months, did y ou or your family ever eat less than you felt you should because there wasn't enough money for food? No 04/26/2021 Stable Housing Answer Date Recorded Are you worried that in the next 2 months you may not have stable housing? No 04/26/2021 Transportation Concerns Answer Date Rec orded In the last 12 months, have you or your family ever had to go without healthcare because you didn't have a way to get there? No 04/26/2021 Hazards in Home Answer Date Recorded Think about the place you li ve. Do you have problems with any of the following? Pests (mice or roaches), mold, no/not working smoke detectors, water leaks, no window guards. No 2020 Financing Utilities Answer Date Recorde d In the last 12 months, has t he electric, gas, oil, or water company threatened to shut off your services in your home? No 04/26/2021 Safety at Home Answer Date Recorded Are you or your family worried about feeling saf e in your home? No 04/26/2021 Outside Support Answer Date Recorded Do you feel that you need mo re support from other people or programs to help you care for yourself or your family? No 04/26/2021 Understanding Health Concerns Answer Da te Recorded Do you need help understandi ng your or your child's healthcare needs (diagnosis, medications, plan, etc.)? No 04/26/2021 Financing Health Concerns Answer Date R ecorded In the last 12 months, was t here a time when your child needed to see a doctor or get medications or supplies but could not because of cost? No 04/26/2021 Missing School or Work Answer Date Bruce rded Did you or your child miss s chool or work because of a health problem that could have been avoided? No 04/26/2021 Comments No Sex and Gender Information Value Date Recorded Sex Assigned at Female 04/24/2020 12:36 PM EDT Legal Sex Female 5:06 PM EDT Gender Identity Female 04/24/2020 12:36 PM EDT Sexual Orientation Straight 04/24/2020 12 :36 PM EDT Last Filed Vital Signs Vital Sign Reading Time Taken Comments Blood Pressure 123/80 06/07/2021 4:24 PM EDT Pulse 85 06/07/2021 4:24 PM EDT Temperature 37.3 ??C (99.1 ??F) 06/07/2021 4:24 PM ED T Respiratory Rate - - Oxygen Saturation 99% 01/23/2015 12:00 AM EDT Inhaled Oxygen Concentration - - Weight 72.4 kg (159 lb 9.6 oz) 06/07/2021 4:24 P M EDT Height 151.2 cm (4' 11.53 ) 06/07/2021 4:24 PM E DT Body Mass Index 31.67 06/07/2021 4:24 PM EDT Plan of Treatment Health Maintenance Due Date Last Done Comments Men B Vaccine (2 of 2 - Trum enba SCDM 2-dose series) 10/27/2021 04/26/2021 Influenza Vaccines (#1) 2024 11/09/19 18, 08/25/2016, 08/14/2015, Additional history exists COVID-19 Vaccine (1 - 2023-2 5 season) 2024 DTaP,Tdap,and Td Vaccines (7 - Td or Tdap) 08/14/2025 08/14/2015, 04/21/2009, 09/30/2005, Additional history exists Hepatitis B Vaccines Completed 2004, 2004, 2004, Additional history exists HIB Vaccines Completed 09/30/2005, 09/15, 2004, Additional history exists Pneumococcal Vaccine Completed 09/30/2005, 2004, 2004, Additional history exists IPV Vaccines Completed 04/21/2009, 09/15, 2004, Additional history exists MMR Vaccines Completed 04/21/2009, 05/05/2005 Varicella Vaccines Completed 04/21/2009, 05/05/2005 Hepatitis A Vaccines Completed 08/14/2015, 08/14/20 14 HPV Vaccines Completed 11/09/2017, 08/25/2016 Meningococcal Vaccine Completed 04/24/2020, 015 Procedures * Due to [place] law, this organization might not be sharing sensitive test results. Procedure Name Priority Date/Time Associated Diagnosis Comments CHLAMYDIA AND GONORRHEA, AMPLIFIED Routine 04/26/2021 4:56 PM EDT Screening examination for bacterial and spirochetal disease from Last 3 Months or Most Recently Relevant to Health Maintenance Results * Due to [place] law, this organization might not be sharing sensitive test results. * Chlamydia and Gonorrhoea, Amplified (04/26/2021 4:56 PM EDT) Chlamydia Trachomatis, DNA Probe NEGATIVE (NEG) [facility] Comment: No Chlamydia Trachomatis RNA detected in this patient's sample ? (REFERENCE RANGE/NORMAL VALUE: NOT DETECTED) ? Note: This test uses cafeteria or lunchroom checker- mediated amplification method to detect rRNA from C. Trachomatis URINE GC AMP PROBE NEGATIVE (NEG) [facility] Comment: No Neisseria Gonorrhoeae RNA detected in this patient's sample ? (REFERENCE RANGE/NORMAL VALUE: NOT DETECTED) ? NOTE: This test uses cafeteria or lunchroom checker-mediated amplification method to detect rRNA from N.Gonorrhoeae. A negative result does not preclude infection. In the case of a negative urine result, testing of an endocervical(female) or urethral (male) specimen is recommended if there is high clinical suspicion of infection. Due to very high sensitivity of Nucleic Acid Amplification Test, false positive results may occur. Therefore, specimen handling is extremely important. In patients in whom the disease is unlikely, additional sample for testing should be considered after an initial positive result. The performance characteristics of this test have not been evaluated in children. The Aptima Combo2 assay is not intended for the evaluation of suspected sexual abuse or for other medico-legal indications. The ordering provider should assess if the patient had consensual sex without risk of sexual abuse. Consult the [facility] if needed. Contact phone number . Therapeutic failure or success cannot be determined with the Aptima Combo2 assay since nucleic acid may persist following appropriate antimicrobial therapy. The Centers for Disease Control and Prevention (CDC) recommends confirmatory retesting using culture or a different nucleic acid amplification test when positive results occur, if indicated. Testing performed or reported by [facility], a Service of [facility], [address], [place] [address] Maynor Vela MD, Vein Pumper Urine 04/26/2021 4:56 PM EDT 04/26/2021 10:02 PM EDT us Ester Pandya NP LAB MICROBIOLOGY - GENERAL ORDER GERARDO Final Result [facility] from Last 3 Months or Most Recently Relevant to Health Maintenance
--- OUTSIDE RECORDS SUMMARY | 2024-11-17 20:10 | XMS_ITS | Continuity of Care Document ---
Author Organization [facility] ter Address [address] [place] [phone]- Care Team Providers Care Manager Case Name Role Phone Not on Staff, PCP Primary Care Physician Unavail able Encounter [facility] Date(s): 11/10/24 - 11/11/[address] [address]- Discharge Disposition: A-D/C Home Attending Physician: Katherine Lin DO Admitting Physician: Katherine Lin DO Referring Physician: Katherine Lin DO Encounter Type: One Time OP Allergies, Adverse Reactions, Alerts Substance Criticality Severity Reaction Reaction Severity Status penicillins Active Medications Multivitamins with Folic Acid 0.4 mg oral tablet 1 tablet, By Mouth, Daily, # 100 tablet, 0 Refills, Maintenance, 09/21/24 5:04:00 PM EST, Tablet, [id number], Partial fill upon patient request if the [...] Refills, Maintenance, 10/03/24 11:01:00 AM EST, [id number], Partial fill upon patient request if the [...] capsule, 1 Refills, Maintenance, 10/07/24 4:33:00 PM EST,[id number], Partial fill upon patient request if the [...] to oldest [Reference Range]: 1 2 Height 157 cm (11/10/24 11:10 PM) Weight 88.0 kg (11/10/24 11:07 PM) Oxygen Saturation [94-100 %] 74 % *L* (11/10/24 11:07 PM) Pulse Rate [55-90 bpm] 100 bpm *H* (11/10/24 11:07 PM) Blood Pressure [90-138/55-84 mm Hg] 116/ 63mm Hg (11/10/24 11:07 PM) Temperature [96.8-100.4 DegF] 98.7 DegF (11/10/24 11:07 PM) Mode of Delivery (Oxygen) Room air (11/10/24 11:16 PM) Blood pressure sites Arm, left (11/10/24 11:16 PM) Arm, right (11/10/24 11:07 PM) Temperature Route Oral (11/10/24 11:16 PM) Oral (11/10/24 11:07 PM) Weight Obtained Via Standing scale (11/10/24 11:07 PM) Social History Social History Type Response Smoking Status Never (less than 100 in lifetime) entered on: 10/03/24 Sex Female Sex Representation Female (finding) Note * Yumiko Martin RN: PERFORM Event Display: Discharge/Transfer Note Hospital Authored Date: [id number] Nursing Discharge Note Entered On: 11/11/2024 3:06 EST Performed On: 11/11/2024 3:05 EST by Yumiko Martni RN Nursing Discharge Note 2 Discharge Time : 11/11/2024 3:04 EST Discharge Level of Care at Discharge : Home/Residential/Foster Care Patient Left Unit Via : Ambulatory Patient Accompanied Off Unit with : Responsible adult DC Instructions Provided & Signed by Pt : Yes Patient Understands D/C Instructions : Yes Patient Instructions Discharge Signed : Yes Did Pt have Specialty Bed or Wound Vac : No Yumiko Martin RN - 11/11/2024 3:05 EST * Event Display: Discharge/Transfer Note Hospital Authored Date: [id number] * Yumiko Martin RN: PERFORM Event Display: Patient Education/Instruction Authored Date: [id number] Inpatient Adult Discharge Instructions. [address] [address] Name: DARIEL AMINATA : 2005?? Visit: 11/10/2024 23:00?? Current Date: 11/11/2024 02:21 ?? Account: [id number]?? Inpatient Adult Discharge Instructions We would like to thank you for allowing us to assist you with your healthcare needs. The following includes patient education materials and information regarding your injury/illness. Our entire staffstrives to provide an excellent experience for our patients and their families. PLEASE ENSURE YOU FOLLOW-UP PER THE INSTRUCTIONS BELOW! ?? YOUR OPINION IS IMPORTANT TO US! Please complete the survey you may receive by mail or email. Your feedback will be used to make improvements to the healthcare experiences of our patients and their families. Surveys are administered by [employer] ?? If further treatment with your primary care physician or another doctor is recommended, it is important for you to keep the appointment. Call your primary care physician or return to the Emergency Department immediately if your condition worsens, fails to improve, or new symptoms develop. If you need to find a doctor, you can call [facility] Link for a referral at [phone] or toll free at [phone] ([phone]) or log in to [email or web address].. ?? [facility], in keeping with [facility] guidance, no longer requires face masks for staff, patientsor visitors in most situations. Similiar to time spent indoors at other locations, there is the chance that you were exposed to repiratory viruses during your time with us (such as flu or COVID-19). If you develop symptoms concerning for a viral respiratory infection, please seek testing (and treatment if indicated) from your medical provider or home test kit. ?? You can view and manage your care through the patient portal or by using a health care jess of your choosing. [employer] is a website that allows you to securely view your medical information including your hospital discharge summary, office visit summaries, medications and follow-up visits. You can also request appointments, renew medications, and request access to your medical information using a health care jess of your choosing, or just ask a question. You can enroll at [email or web address] or register during your next office visit. You have been discharged from [facility], Patient Care Unit: [id number]??. If you have any questions regarding these instructions, including results of studies pending, afteryou leave, please call us and we will be happy to assist you 08/05. [facility] Your Care Team Attending Physician Katherine Lin DO?? Consulting Providers Katherine Lin DO?? Tests Performed Below is a partial list of the tests performed during your hospitalization. You may have had other tests and procedures not included in this list. Please discuss all test results with your provider. No tests performed during this visit.?? Primary Care Provider Not on Staff, PCP?? Advance Directive Health Care Proxy on File No Discharge Vitals Temperature: 98.7 DegF Height: 157 cm Pulse Rate:??100 bpm??High Weight: 88 kg Systolic Blood Pressure: 116 mm Hg ?? Diastolic Blood Pressure: 63 mm Hg ?? Oxygen Saturation:??74 %??Low ?? Studies Pending All studies ordered during this hospital stay have been completed unless listed below. Please discuss all pending results with your provider listed above in these instructions. ?? No incomplete studies found?? What to do next Instructions From Your Doctor ?? Orders?? Scheduled Follow-Up Appointments Monday 1:00 PM EST ?? With: Raya Morrison CNM Where: [facility] [employer] [address] [place] [address]- Status: Pending You Need to Schedule the Following Appointments Follow Up with??[facility] [phone] Discharge Medications THENDARIEL :2005 Visit Date:11/10/2024 Medications: Please continue your medications until treatment is completed or stopped by your provider. Medications not listed below should be discontinued. Discuss any questions related to medications with your provider. What How Much When Why Instructions Next Dose Unchanged Cholecalciferol (Vitamin D3 2000 intl unitsoral capsule) 1 capsule Oral Daily Vitamin D deficiency Unchanged Multivitamin, ( Multivitamins with Folic Acid 0.4 mg oral tablet) 1 tab(s) Oral Daily Unchanged Multivitamin, ( Multivitamins with Folic Acid 1 mg oral tablet) 1 tab(s) Oral Daily Prescription Given During Visit No new medications prescribed at time of discharge.?? Laboratory Results Below is a partial list of the most recent Laboratory test results done prior to this discharge. You may have had other tests and procedures not included in this list. Please discuss all test resultswith your provider. Allergies (NKA means No Known Allergies) penicillins Problems Active Problems??(7) Asthma?? H/O Abdominal cramping?? H/O Anxiety and depression?? H/O Exposure to STD?? H/O vitamin D deficiency?? Obese class I? Education Materials Below is the list of Educational Leaflet Providered with your Discharge Instructions. [employer] Patient Education - Possible Miscarriage (Threatened )?? [employer] Patient Education - Bleeding During Early ?? Valuables and Belongings I fully understand and agree that [facility] accepts no responsibility for all my personal property including clothing, toilet articles, radios, jewelry, dentures, hearing aids, rings, money, or any other property that is in my possession or is brought to me after admission. I understand certain valuables may be placed in a hospital safe for a short period of time. I understand that the hospital is not liable for loss or damage due to accident, fire, or other natural occurrence while said property is in the safe. I accept full responsibility for any personal property that I keep with me, and will not hold the hospital responsible in case of loss or disappearance. I acknowledge that i have been encouraged to send valuables and belongings home. ? Common Emergency Awareness Tips IS IT A STROKE? Act FAST and Check for these signs: FACE Does the face look uneven? ARM Does one arm drift down? SPEECH Does their speech sound strange? TIME Call at any sign of stroke ?? Heart Attack Signs Chest discomfort: Most heart attacks involve discomfort in the center of the chest and lasts more than a few minutes, or goes away and comes back. It can feel like uncomfortable pressure, squeezing, fullness or pain. Discomfort in upper body: Symptoms can include pain or discomfort in one or both arms, back, neck, jaw or stomach. Shortness of breath: With or without discomfort. Other signs: Breaking out in a cold sweat, nausea, or lightheaded. Remember, MINUTES DO MATTER. If you experience any of these heart attack warning signs, call to get immediate medical attention! ?? Smoking can increase your chances of developing chronic health problems and can cause harmful effects to other family members in your house. If you smoke, you are strongly encouraged to quit. Please call [facility] Link at [phone] or [phone] ([phone]) or log in to [email or web address] for referrals to smoking cessation programs. ?? 980 Suicide & Crisis Lifeline is available 08/05 if you or someone you know needs to find a reason to keep living. By calling 904 you'll be connected to a skilled, trained counselor at a crisis center in your area. INPATIENT DISCHARGE INSTRUCTIONS SIGNATURE PERRI DARIEL COATES Location:[facility] Registration Date and Time:11/10/2024 23:00 EST Primary Care Physician: Not on Staff, PCP Attending Physician: Katherine Lin DO, Kelsey COATES DARIEL, have received the above patient education materials/instructions and have verbalized understanding. If ambulance or transport services are being used I further acknowledge being givena choice of service. ?? If you need to contact me, please call me at this number: . Patient/Car Varnisher Name: Patient/Car Varnisher Signature: Relationship to Patient: Witness Name/Signature: Date: * Veronica MANUEL, Yumiko Jaimes: PERFORM Event Display: Patient Education Leaflets Authored Date: [id number] Possible Miscarriage (Threatened ) ?? [id number] Possible Miscarriage (Threatened ) You may be having a miscarriage. Common signs of a miscarriage are pain and bleeding.??A small amount of bleeding can be normal during the first 3 months of . Often the pain and bleeding stop, and you have a normal and baby.??But heavy bleeding or severe cramping can be an early sign of miscarriage. A miscarriage means??an??unexpected loss of your . At this time, your healthcare provider doesn???t know whether you will have a miscarriage, or if things will clear up and your will continue normally. This can be emotionally difficult. There is little that can be done to change the way you feel. But??understand that miscarriages are common. About 1 or 2 out of every [address] Some even end before you know you are . This happens for a number of reasons, and usually the cause is never known. It???s important youknow that it is not your fault. It didn???t happen because you did anything wrong. Having sex or exercising does not cause a miscarriage. These activities are usually safe unless youhave pain or bleeding, or your healthcare provider tells you to stop. Even minor falls won???t cause a miscarriage. Miscarriages happen because things were not developing as they were supposed to. Nomedicine can prevent a miscarriage. Again, understand that things are uncertain right now. You may still have some bleeding. This may be light spotting or like a period, and you may pass some tissue. You may have some cramping. This iswhy follow-up care is important. Home care To improve the chance of keeping??your , you should take these steps: ??? Rest in bed until the pain and bleeding stop. ??? Don???t have sex until your healthcare provider says it???s OK. ??? Use sanitary napkins instead of tampons. ??? Don???t douche. ??? Don???t take aspirin, ibuprofen, or naproxen. ??? Don???t have alcoholic or caffeinated beverages or smoke. ?? Follow-up care Make an appointment with your healthcare provider within the next week, or as directed. If you had an ultrasound,??a radiologist??will??review??it.??You will be told of any new findings that may affect your care. ?? Call 911 Call 911 if you have: ??? Severe pain and very heavy bleeding ??? Severe lightheadedness, passing out, or fainting ??? Rapid heart rate ??? Trouble breathing ??? Confusion or trouble waking up ?? When to seek medical advice Call your healthcare provider right away??if any of the following occur: ??? Vaginal bleeding or pain that lasts for more than 3 days ??? Heavy bleeding. This means soaking 1 new pad an hour over 3 hours. ??? Fever of 100.4??F (38??C) or higher, or as directed by your healthcare provider ??? Pain in your lower belly (abdomen) that gets worse ??? Weakness or dizziness ??? Passage of anything that resembles tissue. This would be pink or grayish membrane or solid material. Save the tissue in a clean container and bring it to your healthcare provider. ?? Last Reviewed Date: 2022 ?? 8045-5052 [employer]. All rights reserved. This information is not intended as a substitute for professional medical care. Always follow your healthcare professional's instructions. ?? * Veronica MANUEL, Yumiko Jaimes: PERFORM Event Display: Patient Education Leaflets Authored Date: [id number] Bleeding During Early ?? [address] Bleeding During Early If you???ve had bleeding early in your , you???re not alone. Many other women have early bleeding, too. And in most cases, nothing is wrong. But your healthcare provider still needsto know about it. They may want to do tests to find out why you???re bleeding. Call your provider if you see bleeding during . Tell your provider if your blood is Rh negative. Then they can figure out if you need anti-D immune globulin treatment. What causes early bleeding? The cause of bleeding early in is often unknown. But many factors early on in may lead to light bleeding (called spotting) or heavier bleeding. These include: ??? Having sex ??? When the embryo implants on the uterine wall ??? Bleeding between the sac membrane and the uterus (subchorionic bleeding) ??? loss (miscarriage) ??? The embryo implants outside of the uterus (ectopic ) ?? If you see spotting Light bleeding is the most common type of bleeding in early . If you see it, call your healthcare provider. Chances are, they will tell you that you can care for yourself at home. ?? If tests are needed Depending on how much you bleed, your healthcare provider may ask you to come in for some tests. A pelvic exam, for instance, can help see how far along your is. You also may have an ultrasound or a Doppler test. These imaging tests use sound waves to check the health of your baby. The ultrasound may be done on your belly or inside your vagina. You may also need a special blood test. This test compares your hormone levels in blood samples taken 2 days apart. The results can help your provider learn more about the implantation of the embryo. Your blood type will also need to be checked to assess if you will need to be treated for Rh sensitization.?? Ultrasound can help check the health of your fetus. ?? Warning signs If your bleeding doesn???t stop or if you have any of the following, get medical care right away: ??? Soaking a sanitary pad each hour ??? Bleeding like you???re having a period ??? Cramping or severe belly pain ??? Feeling dizzy or faint ??? Tissue passing through your vagina ??? Bleeding at any time after the first trimester ?? Questions you may be asked Bleeding early in isn't normal. But it is common. If you???ve seen any bleeding, you may be concerned. But keep in mind that bleeding alone doesn???t mean something is wrong. Just be sure to call your healthcare provider right away. They may ask you questions like these to help find the cause of your bleeding: ??? When did your bleeding start? Is your bleeding very light or is it like a period? Is the blood bright red or brownish? Have you had sex recently? Have you had pain or cramping? Have you felt dizzy or faint? ?? Monitoring your Bleeding will often stop as quickly as it began. Your may go on a normal path again. You may need to make a few extra visits. But you and your baby will most likely be fine. ?? Last Reviewed Date: 2021 ?? 9480-4617 [employer]. All rights reserved. This information is not intended as a substitute for professional medical care. Always follow your healthcare professional's instructions. ?? Patient Care team information Care Team Personnel Name: Not on Staff, PCP Position: [facility] Physician (General Medicine) Member Role: PCP Name: Yumiko Martin RN Position: [facility] OB RN Member Role: Patient Care Provider Care Team Related Persons Name: YOGESH COATES Insurance Providers Guarantor name: [employer] Health Plan Information #: 1 Payer: S[employer]URANCE Member Number: [id number] Policy Number: [employer] Group Number: [employer] Health Plan Information #: 2 Payer: SELF PAY INSURANCE Member Number: [id number] Policy Number: [employer] Group Number: [id number]
--- OUTSIDE RECORDS SUMMARY | 2024-11-17 20:10 | XMS_ITS | Encounter Summary ---
Author Organization [facility] Address [address] [place] [address] Phone Care Team Providers Care Sales And Merchandising Representative Name Role Phone Provider, Panda RIDDLE Primary Care Provider [phone] Encounter Details Date Type Department Care Team (Late st Contact Info) Description 08/19/2014 Documentation EM Family Medicine [address] [place] [address] Family Medicine, Physician [address] [place] [address] Social History Tobacco Use Types [...] on filedocumented in this encounter Care Teams Sales And Merchandising Representative Relationship Specialty Start Date End Date Provider, MD Panda [address] [place] [address] PCP - General Pediatrics 11/14/22 05/09/24 documented as of this encounter
--- OUTSIDE RECORDS SUMMARY | 2024-11-17 20:10 | XMS_ITS | Encounter Summary ---
Author Organization [facility] Address [address] [place] [phone] Phone Care Team Providers Care Account Strategist Name Role Phone Provider, Panda RIDDLE Primary Care Provider [phone] Encounter Details Date Type Department Care Team (Late st Contact Info) Description 08/12/2013 Documentation EM Family Medicine [address] [place] [address] Family Medicine, Physician [address] [place] [address] Social History Tobacco Use Types [...] on filedocumented in this encounter Care Teams Account Strategist Relationship Specialty Start Date End Date Provider, MD [address] [place] [address] PCP - General Pediatrics 11/14/22 05/09/24 documented as of this encounter
== END 2024-11-17 20:10 | disposition left against medical advice (07) ==
PROVIDERS: Emergency Provider Emergency Medicine; PCP Internal Medicine
DX: L72.0 Epidermal cyst (principal)

== ENCOUNTER 2025-09-12 18:35 | Emergency (ER) | payer OTHER, MEDICAID, SELFPAY ==
[2025-09-12 18:38] VITALS: BP 111/74; PULSE 87; RESP 20; TEMP 37; O2SAT 98; BMI 36.2
--- NOTE | 2025-09-12 18:40 | ED.GENADULT ---
HPI - General Adult General Chief complaint: General Medical Stated complaint: General Medical Time Seen by Provider: 09/12/25 19:16 Source: patient Mode of arrival: ambulatory Limitations: no limitations History of Present Illness ED Provider: Dr. Polo [facility] narrative: This is a 20-year-old female presenting to ER today for evaluation of possible Bartholin cyst, take vaginal discharge. This has been going on for a couple of weeks. Patient had recent in April with delivery of the baby. Patient has history of marsupialization for recurrent Bartholin's cyst in the past with the OBGYN team. Patient's does endorse some pelvic pain. Related Data Home Medications ?Medication ?Instructions ?Recorded ?Confirmed albuterol sulfate 90 mcg/actuation 2 puff inhalation Q6H PRN 02/22/22 06/15/22 aerosol inhaler cholecalciferol (vitamin D3) 50 50 mcg PO DAILY 02/22/22 06/15/22 mcg (2,000 unit) capsule Previous Rx's ?Medication ?Instructions ?Recorded ibuprofen 600 mg tablet 600 mg PO Q8H PRN pain #60 tabs 06/15/22 nystatin 100,000 unit/gram topical 1 appl topical BID #30 grams 05/05/23 powder cephalexin 500 mg capsule 500 mg PO QID 10 days #40 caps 02/18/24 azithromycin 250 mg tablet See Rx Instructions PO .COMPLEX #6 09/12/25 tabs metronidazole 500 mg tablet 500 mg PO BID 7 days #14 tabs 09/12/25 Allergies Allergy/AdvReac Type Severity Reaction Status Date / Time Penicillins (PENICILLINS) Allergy Mild HIVES Verified 09/12/25 18:42 Review of Systems Review of Systems: Pertinent review of systems as mentioned in [facility]. All other system otherwise negative. [facility] Past Medical History [facility] Narrative: Medical history as mentioned in HPI Medical History Asthma Social History Social History Household Members Other:: mom Housing: Apartment Patient Tobacco Use Status: Never used Tobacco Smoked in Last 30 Days: No Advance Directives: No Advance Directives Information Provided: No Patient : No Physical Exam ED Exam Exam: General: Pleasant, no distress, interacting appropriately Head: Normacephalic, atraumatic : performed with KALEB Cotter as bottling supervisor, no Bartholin cyst on exam. Green white vaginal discharge no pus from cervix. Neurological: Awake and alert, no facial droop noted Skin: Warm and dry Psychiatric: Appropriate mood and thoughts Vital Signs: Vital Signs - 24 hr 09/12/25 18:38 Temperature 98.6 F Pulse Rate 87 Respiratory Rate 20 Blood Pressure 111/74 Pulse Oximetry 98 Oxygen Delivery Method Room Air BMI result Body Mass Index 36.2 Course Course Course Narrative: Rapid medical examination performed in triage by Sondra Gonzalez PA-C: Patient is a 20 year old assigned female at presenting to the emergency department with vaginal abscesses, vaginal discharge, and STI testing. Detailed physical exam and review of systems are deferred to the ore feeder. Swabs ordered. Patient placed back in the waiting room pending room availability and results. Medications Administered Discontinued Medications Generic Name Dose Route Start Last Admin Trade Name Freq PRN Reason Stop Dose Admin Ceftriaxone Sodium 500 mg/ 0 mg 09/12/25 19:45 09/12/25 19:57 Lidocaine HCl 1 ml IM 09/12/25 19:46 350 kit ONCE ONE Administration Doxycycline Monohydrate 100 mg 09/12/25 19:45 09/12/25 19:57 Doxycycline Monohydrate 100 Mg Capsule PO 09/12/25 19:46 100 mg ONCE ONE Administration Metronidazole 500 mg 09/12/25 20:41 09/12/25 20:57 Metronidazole 500 Mg Tablet PO 09/12/25 20:42 500 mg ONCE ONE Administration Medical Decision Making Medical Decision Making [facility] Narrative: This is a 20-year-old female presented hospital today for evaluation of thick vaginal discharge along with a pelvic pain requesting assessment of Bartholin's cyst and STD at this time. Did not identify any obvious Bartholin's cyst. Did not appreciate any induration that may indicate infection at this time. Gonorrhea, chlamydia, bacteria in her vaginosis testing will be sent off. We will plan to cover patient with IM ceftriaxone and doxycycline. Patient is noted to have some penicillin allergy. Patient stated she has been able to tolerate IM ceftriaxone in the past. Denies any fall anaphylaxis with penicillin allergy she is unable to recall it when she was a child. Patient's urine was positive. We will send a beta hCG quant to verify. It was noted to be ?weakly positive ? HCG is elevated minimally at 36. This was discussed with the patient recommend follow up with repeat hCG in 48 hours. We will plan to cover patient with Flagyl for BV. Her course of Flagyl and azithromycin will be prescribed for the patient. The patient tolerated the IM ceftriaxone well. Patient will be discharged at this time. STD test pending. Recommended her to follow up with her OBGYN or primary care doctor for results. Differential Diagnosis Differential Diagnoses: The differential diagnosis associated with the presentation includes , STD, Bartholin cyst Lab Data MDM Lab Attestation statement: I reviewed the patient's lab results. Labs: Lab Results 09/12/25 09/12/25 Range/Units 18:50 19:27 Beta HCG, Quant 36 mIU/mL Urine Color Yellow Urine Appearance Clear Urine pH 5.5 (5.0-9.0) Ur Specific Nicholls 1.020 (1.005-1.025) Urine Protein Negative (Neg-Trace) mg/dL Urine Glucose (UA) Negative (Negative) mg/dL Urine Ketones Negative (Negative) mg/dL Urine Blood Negative (Negative) Urine Nitrite Negative (Negative) Ur Leukocyte Esterase Moderate (2+) H (Negative) Urine RBC 0-2 (0-2) /HPF Urine WBC 21-50 H (0-5) /HPF Ur Squamous Epith Cells 0-2 (0-2) /HPF Urine Bacteria Trace (None Seen) Hyaline Casts 0-2 (0-2) /LPF Urine Test WEAKLY POSITIVE H (NEGATIVE) Discharge Plan Discharge Clinical Impression: Elevated serum hCG, Vaginal discharge Patient Disposition: Home, Self-Care Instructions: Vaginal Discharge (ED) Additional Instructions: Follow up with primary care doctor or [facility]. You do have elevated HCG consistent with . It is 36. I recommend having the lab drawn in 48 hours to trend this to see if this is climbing or decreasing. Take the antibiotic as instructed Prescriptions: New azithromycin 250 mg tablet See Rx Instructions .ROUTE .COMPLEX Qty: 6 0RF Rx Instructions: For 250 mg dose pack: take 500 mg today (day 1), then 250 mg for 4 days (days 2-5) metronidazole 500 mg tablet 500 mg PO BID 7 Days Qty: 14 0RF No Action cephalexin 500 mg capsule 500 mg PO QID 10 Days Qty: 40 0RF nystatin 100,000 unit/gram powder 1 appl topical BID Qty: 30 0RF cholecalciferol (vitamin D3) 50 mcg (2,000 unit) capsule 50 mcg PO DAILY albuterol sulfate 90 mcg/actuation HFA aerosol inhaler 2 puff inhalation Q6H PRN ibuprofen 600 mg tablet 600 mg PO Q8H PRN (Reason: pain) Qty: 60 1RF Referrals: Bryan Bravo MD [Physician, [facility] SORTER] Print Language: Georgian
--- NOTE | 2025-09-12 18:46 | PC.NURSE ---
This RN went over self swabbing for STI testing, pt currently doing swabs at this time with UA as well
[2025-09-12 19:07] LABS: Appearance Urine Clear; Glucose Urine UA Negative (Negative); PH 5.5 (5.0-9.0); Specific Gravity - Urine 1.020 (1.005-1.025); UMIC TRIGGER UACC YES
[2025-09-12 19:11] LABS: UACC Culture Trigger YES
[2025-09-12 19:13] LABS: UPreg QC Valid YES
--- NOTE | 2025-09-12 19:15 | PC.NURSE ---
pt reports vaginal cyst, painful. She has had this same cyst come back 8x in the last 2 years. It was last drained in february, pt was 7 months and her OB performed this procedure. Pt had no f/u with PCP or OB for this cyst that she has now. LMP August 12. reports thick white discharge.
--- OUTSIDE RECORDS SUMMARY | 2025-09-12 19:51 | XMS_ITS | Encounter Summary ---
Author Organization [facility] Address [address] [place] [address] Phone Care Team Providers Care Resort Host Name Role Phone Provider, Panda RIDDLE Primary Care Provider Encounter Details Date Type Department Care Team (Late st Contact Info) Description 12/07/2011 Documentation EM Family Medicine [address] [place] [address] Family Medicine, Physician [address] [place] [address] Social History Tobacco Use Types [...] on filedocumented in this encounter Care Teams Resort Host Relationship Specialty Start Date End Date Provider, MD [address] [place] [address] PCP - General Pediatrics 11/14/22 05/09/24 documented as of this encounter
--- OUTSIDE RECORDS SUMMARY | 2025-09-12 19:51 | XMS_ITS | Encounter Summary ---
Author Organization [facility] Address [address] [place] [address] Phone Care Team Providers Care Pallet Sorter Name Role Phone Provider, Panda RIDDLE Primary Care Provider [phone] Encounter Details Date Type Department Care Team (Late st Contact Info) Description 08/18/2015 Documentation EM Family Medicine [address] [place] [address] Family Medicine, Physician [address] [place] [address] Social History Tobacco Use Types [...] on filedocumented in this encounter Care Teams Pallet Sorter Relationship Specialty Start Date End Date Provider, MD Panda [address] [place] [address] PCP - General Pediatrics 11/14/22 05/09/24 documented as of this encounter
--- OUTSIDE RECORDS SUMMARY | 2025-09-12 19:51 | XMS_ITS | Encounter Summary ---
Author Organization [facility] Address [address] [place] [address] Phone Care Team Providers Care Clock Smith Name Role Phone Provider, Panda RIDDLE Primary Care Provider Encounter Details Date Type Department Care Team (Late st Contact Info) Description 02/19/2016 Documentation EM Family Medicine [address] [place] [address] Family Medicine, Physician [address] [place] [address] Social History Tobacco Use Types [...] on filedocumented in this encounter Care Teams Clock Smith Relationship Specialty Start Date End Date Provider, MD [address]anda [address] [place] [address] PCP - General Pediatrics 11/14/22 05/09/24 documented as of this encounter
--- OUTSIDE RECORDS SUMMARY | 2025-09-12 19:51 | XMS_ITS | Encounter Summary ---
Author Organization [facility] Address [address] [place] [address] Phone Care Team Providers Care Wave Guide Assembler Name Role Phone Provider, Panda RIDDLE Primary Care Provider [phone] Encounter Details Date Type Department Care Team (Late st Contact Info) Description 06/29/2012 Documentation EM Family Medicine [address] [place] [address] Family Medicine, Physician [address] [place] [address] Social History Tobacco Use Types [...] on filedocumented in this encounter Care Teams Wave Guide Assembler Relationship Specialty Start Date End Date Provider, MD [address]anda [address] [place] [address] PCP - General Pediatrics 11/14/22 05/09/24 documented as of this encounter
--- OUTSIDE RECORDS SUMMARY | 2025-09-12 19:51 | XMS_ITS | Clinical Summary ---
Author Organization [facility] Address [address] [place] [phone] Phone Care Team Providers Care High Pressure Cleaner Name Role Phone Physician, No Pcp Primary Care Provider Unavaila ble Allergies Active Allergy Reactions Criticality Noted Date Comments Penicillin V Hives 10/23/2024 Hard to breathe Medications clotrimazole (LOTRIMIN) 1 % cream Apply 1 Application topically 2 (two) times a day. APPLY TO AFFECTED AREA Active vitamin iron fum-folic acid 27-0.8 mg per tablet Take 1 tablet by mouth 1 (one) time each day. Active folic acid-vitamin B complex-vitamin G-wkyzceqa-mpqg (DIALYVITE) 3-70-15 mg-mcg-mg tablet Take 1 tablet by mouth 1 (one) time each day. Active Social History Tobacco Use Types Packs/Day Years Used Date Smoking Tobacco: Never Smokeless Tobacco: Never Alcohol Use Standard Drinks/Week Comments Not Currently 0 (1 standard drink = 0.6 oz pur e alcohol) before Comments Unknown Sex and Gender Information Value Date Recorded Sex Assigned at Not on file Legal Sex Female 4:16 PM EST Gender Identity Not on file Sexual Orientation Not on file Obstetrics History Para Term AB IAB SAB Ectopic Multiple Livin g Live Births 1 Date Outcome GA Total Labor Labor/2nd/3rd Weight Sex Type Anes PTL Jennifer A1 A5 Name Clin Last Filed Vital Signs Vital Sign Reading [...] 5 Years) and At-Risk Patients (6 to 49 Years) (1 of 1 - PPSV23, PCV20, or PCV21) 02/24/2010 09/30/2005, 2004, 2004, Additional history exists Meningococcal B Vaccine (2 of 2 - Trumenba SCDM 2-dose series) 10/27/2021 04/26/2021 Annual Well Child Visit (3-21 years old) 09/27/2024 04/26/2021, 04/24/2020, 03/22/2019, Additional history exists HIV Screening 09/27/2024 Hepatitis C Screening 09/27/2024 Social Influencers of Health Screening 09/27/2024 Depression Screening 10/16/2024 Cervical Cancer Screening: Pap Smear 02/24/2025 COVID-19 Vaccine ( season) 2025 Influenza Vaccine (#1) 2025 8, 08/25/2016, 08/14/2015, Additional history exists DTaP,Tdap,and Td Vaccines (7 - Td or Tdap) 08/14/2025 08/14/2015, 04/21/2009, 09/30/2005, Additional history exists RSV Immunization Adult Patients (1 - 1-dose 75+ series) 02/24/2079 Hepatitis B Vaccines Completed 2004, 2004, 2004, [...] on patient's age to complete this topic Insurance Endurance [employer] [place] [address] Care Teams High Pressure Cleaner Relationship Specialty Start Date End Date Physician, No Pcp PCP - General 09/27/24
--- OUTSIDE RECORDS SUMMARY | 2025-09-12 19:51 | XMS_ITS | Encounter Summary ---
Author Organization [facility] Address [address] [place] [address] Phone Care Team Providers Care Custom Wood Stair Builder Name Role Phone Provider, Panda RIDDLE Primary Care Provider [phone] Encounter Details Date Type Department Care Team (Late st Contact Info) Description 08/20/2015 Documentation EM Family Medicine [address] [place] [address] Family Medicine, Physician [address] [place] [address] Social History Tobacco Use Types [...] on filedocumented in this encounter Care Teams Custom Wood Stair Builder Relationship Specialty Start Date End Date Provider, MD Panda [address] [place] [address] PCP - General Pediatrics 11/14/22 05/09/24 documented as of this encounter
--- OUTSIDE RECORDS SUMMARY | 2025-09-12 19:51 | XMS_ITS | Encounter Summary ---
Author Organization [facility] Address [address] [place] [address] Phone Care Team Providers Care Wad Impregnator Name Role Phone Provider, Panda RIDDLE Primary Care Provider [phone] Encounter Details Date Type Department Care Team (Late st Contact Info) Description 08/26/2016 Documentation EM Family Medicine [address] [place] [address] Family Medicine, Physician [address] [place] [address] Social History Tobacco Use Types [...] on filedocumented in this encounter Care Teams Wad Impregnator Relationship Specialty Start Date End Date Provider, MD [address] [place] [address] PCP - General Pediatrics 11/14/22 05/09/24 documented as of this encounter
--- OUTSIDE RECORDS SUMMARY | 2025-09-12 19:51 | XMS_ITS | Encounter Summary ---
Author Organization [facility] Address [address] [place] [address] Phone Care Team Providers Care Redevelopment Manager Name Role Phone Provider, Panda RIDDLE Primary Care Provider [phone] Encounter Details Date Type Department Care Team (Late st Contact Info) Description 08/12/2013 Documentation EM Family Medicine [address] [place] [address] Family Medicine, Physician [address] [place] [address] Social History Tobacco Use Types [...] on filedocumented in this encounter Care Teams Redevelopment Manager Relationship Specialty Start Date End Date Provider, MD [address]anda [address] [place] [address] PCP - General Pediatrics 11/14/22 05/09/24 documented as of this encounter
--- OUTSIDE RECORDS SUMMARY | 2025-09-12 19:51 | XMS_ITS | Encounter Summary ---
Author Organization [facility] Address [address] [place] [address] Phone Care Team Providers Care Manager Business Continuity Name Role Phone Provider, Panda RIDDLE Primary Care Provider [phone] Encounter Details Date Type Department Care Team (Late st Contact Info) Description 08/19/2014 Documentation EM Family Medicine [address] [place] [address] Family Medicine, Physician [address] [place] [address] Social History Tobacco Use Types [...] on filedocumented in this encounter Care Teams Manager Business Continuity Relationship Specialty Start Date End Date Provider, MD [address]anda [address] [place] [address] PCP - General Pediatrics 11/14/22 05/09/24 documented as of this encounter
--- OUTSIDE RECORDS SUMMARY | 2025-09-12 19:51 | XMS_ITS | Encounter Summary ---
Author Organization [facility] Address [address] [place] [address] Phone Care Team Providers Care Bag Turner Name Role Phone Provider, Panda RIDDLE Primary Care Provider [phone] Encounter Details Date Type Department Care Team (Late st Contact Info) Description 08/12/2013 Documentation EM Family Medicine [address] [place] [address] Family Medicine, Physician [address] [place] [address] Social History Tobacco Use Types [...] on filedocumented in this encounter Care Teams Bag Turner Relationship Specialty Start Date End Date Provider, MD [address] [place] [address] PCP - General Pediatrics 11/14/22 05/09/24 documented as of this encounter
--- OUTSIDE RECORDS SUMMARY | 2025-09-12 19:51 | XMS_ITS | Clinical Summary ---
Author Organization [facility] Address [address] [place] [address] Phone Care Team Providers Care Curtain Framer Name Role Phone Unavailable Primary Care Provider [...] periods Anxiety 04/24/2020 Overview (04/24/2020): [facility] (04/29/2021 7:10 AM EDT): [...] 3:52 PM EDT): Discussed healthy eating/exercise. Immunizations Immunization Administration Dates Next Due DTaP / Hep [...] *Heart Disease, No family history of *Sudden /PA under 55, No family history of *Thrombophilia, [...] 85 06/07/2021 4:24 PM EDT Temperature 37.3 C (99.1 F) 06/07/2021 4:24 PM EDT Respiratory Rate - - Oxygen Saturation 99% [...] 2-dose series) 10/27/2021 04/26/2021 Influenza Vaccines (#1) 2025 11/09/19 18, 08/25/2016, 08/14/2015, Additional history exists COVID-19 Vaccine (1 - 2024-2 6 season) 2025 DTaP,Tdap,and Td Vaccines (7 - Td or [...] Completed 04/24/2020, 015 Procedures * Due to [facility] law, this organization might not be sharing sensitive test results. Procedure Name Priority Date/Time Associated Diagnosis Comments CHLAMYDIA AND GONORRHEA, AMPLIFIED Routine 04/26/2021 4:56 PM EDT Screening examination for bacterial and spirochetal disease from Last 3 Months or Most Recently Relevant to Health Maintenance Results * Due to [place] [employer] law, this organization might not be sharing sensitive test results. * Chlamydia and Gonorrhoea, Amplified (04/26/2021 4:56 PM EDT) Chlamydia Trachomatis, DNA Probe NEGATIVE (NEG) [facility] Comment: No Chlamydia Trachomatis RNA detected in this patient's sample (REFERENCE RANGE/NORMAL VALUE: NOT DETECTED) Note: This test uses lens polisher hand- mediated amplification method to detect rRNA from C. Trachomatis URINE GC AMP PROBE NEGATIVE (NEG) [facility] Comment: No Neisseria Gonorrhoeae RNA detected in this patient's sample (REFERENCE RANGE/NORMAL VALUE: NOT DETECTED) NOTE: This test uses lens polisher hand-mediated amplification method to detect rRNA from N.Gonorrhoeae. [...] without risk of sexual abuse. Consult the [facility] if needed. Contact phone number . Therapeutic failure or success cannot be determined with the Aptima Combo2 assay since nucleic acid may persist following appropriate antimicrobial therapy. The Centers for Disease Control and Prevention (CDC) recommends confirmatory retesting using culture or a different nucleic acid amplification test when positive results occur, if indicated. Testing performed or reported by [facility], a Service of [facility], [address] [place] [address] Maynor Vela MD, Percussion Tuner Urine 04/26/2021 4:56 PM EDT 04/26/2021 10:02 PM EDT us Ester Pandya NP LAB MICROBIOLOGY - GENERAL ORDER GERARDO Final Result [facility] from Last 3 Months or Most Recently Relevant to Health Maintenance
--- OUTSIDE RECORDS SUMMARY | 2025-09-12 19:51 | XMS_ITS | Encounter Summary ---
Author Organization [facility] Address [address] [place] [address] Phone Care Team Providers Care Acetylene Operator Name Role Phone Provider, Panda RIDDLE Primary Care Provider [phone] Encounter Details Date Type Department Care Team (Late st Contact Info) Description 11/17/2016 Documentation EM Family Medicine [address] [place] [address] Family Medicine, Physician [address] [place] [address] Social History Tobacco Use Types [...] on filedocumented in this encounter Care Teams Acetylene Operator Relationship Specialty Start Date End Date Provider, MD [address]anda [address] [place] [address] PCP - General Pediatrics 11/14/22 05/09/24 documented as of this encounter
--- OUTSIDE RECORDS SUMMARY | 2025-09-12 19:51 | XMS_ITS | Encounter Summary ---
Author Organization [facility] Address [address] [place] [address] Phone Care Team Providers Care Waterproofing Machine Operator Name Role Phone Provider, Panda RIDDLE Primary Care Provider [phone] Encounter Details Date Type Department Care Team (Late st Contact Info) Description 08/15/2014 Documentation EM Family Medicine [address] [place] [address] Family Medicine, Physician [address] [place] [address] Social History Tobacco Use Types [...] on filedocumented in this encounter Care Teams Waterproofing Machine Operator Relationship Specialty Start Date End Date Provider, MD Panda [address] [place] [address] PCP - General Pediatrics 11/14/22 05/09/24 documented as of this encounter
--- OUTSIDE RECORDS SUMMARY | 2025-09-12 19:51 | XMS_ITS | Encounter Summary ---
Author Organization [facility] Address [address] [place] [address] Phone Care Team Providers Care Supply Officer Name Role Phone Provider, Panda RIDDLE Primary Care Provider [phone] Encounter Details Date Type Department Care Team (Late st Contact Info) Description 08/26/2016 Documentation EM Family Medicine [address] [place] [address] Family Medicine, Physician [address] [place] [address] Social History Tobacco Use Types [...] on filedocumented in this encounter Care Teams Supply Officer Relationship Specialty Start Date End Date Provider, MD [address]anda [address] [place] [address] PCP - General Pediatrics 11/14/22 05/09/24 documented as of this encounter
--- OUTSIDE RECORDS SUMMARY | 2025-09-12 19:51 | XMS_ITS | Encounter Summary ---
Author Organization [facility] Address [address] [place] [address] Phone Care Team Providers Care Horticultural Specialty Grower Name Role Phone Provider, Panda RIDDLE Primary Care Provider [phone] Encounter Details Date Type Department Care Team (Late st Contact Info) Description 02/09/2015 Documentation EM Family Medicine [address] [place] [address] Family Medicine, Physician [address] [place] [address] Social History Tobacco Use Types [...] on filedocumented in this encounter Care Teams Horticultural Specialty Grower Relationship Specialty Start Date End Date Provider, MD [address] [place] [address] PCP - General Pediatrics 11/14/22 05/09/24 documented as of this encounter
--- OUTSIDE RECORDS SUMMARY | 2025-09-12 19:51 | XMS_ITS | Encounter Summary ---
Author Organization [facility] Address [address] [place] [id number] Phone Care Team Providers Care Human Relations Teacher Name Role Phone Provider, Panda RIDDLE Primary Care Provider [phone] Encounter Details Date Type Department Care Team (Late st Contact Info) Description 06/29/2012 Documentation EM Family Medicine [address] [place] [address] Family Medicine, Physician [address] [place] [address] Social History Tobacco Use Types [...] on filedocumented in this encounter Care Teams Human Relations Teacher Relationship Specialty Start Date End Date Provider, MD [address]anda [address] [place] [address] PCP - General Pediatrics 11/14/22 05/09/24 documented as of this encounter
--- OUTSIDE RECORDS SUMMARY | 2025-09-12 19:51 | XMS_ITS | Encounter Summary ---
Author Organization [facility] Address [address] [place] [address] Phone Care Team Providers Care Grave Digger Name Role Phone Provider, Panda RIDDLE Primary Care Provider [phone] Encounter Details Date Type Department Care Team (Late st Contact Info) Description 08/13/2013 Documentation EM Family Medicine [address] [place] [address] Family Medicine, Physician [address] [place] [address] Social History Tobacco Use Types [...] on filedocumented in this encounter Care Teams Grave Digger Relationship Specialty Start Date End Date Provider, MD Panda [address] [place] [address] PCP - General Pediatrics 11/14/22 05/09/24 documented as of this encounter
--- OUTSIDE RECORDS SUMMARY | 2025-09-12 19:51 | XMS_ITS | Encounter Summary ---
Author Organization [facility] Address [address] [place] [address] Phone Care Team Providers Care Paving And Surfacing Labourer Name Role Phone Provider, Panda RIDDLE Primary Care Provider [phone] Encounter Details Date Type Department Care Team (Late st Contact Info) Description 06/29/2012 Documentation EM Family Medicine [address] [place] [address] Family Medicine, Physician [address] [place] [address] Social History Tobacco Use Types [...] on filedocumented in this encounter Care Teams Paving And Surfacing Labourer Relationship Specialty Start Date End Date Provider, MD Panda [address] [place] [address] PCP - General Pediatrics 11/14/22 05/09/24 documented as of this encounter
--- OUTSIDE RECORDS SUMMARY | 2025-09-12 19:51 | XMS_ITS | Encounter Summary ---
Author Organization [facility] Address [address] [place] [address] Phone Care Team Providers Care Sofa Cover Inspector Name Role Phone Provider, Panda IRDDLE Primary Care Provider [phone] Encounter Details Date Type Department Care Team (Late st Contact Info) Description 06/27/2011 Documentation EM Family Medicine [address] [place] [address] Family Medicine, Physician [address] [place] [address] Social History Tobacco Use Types [...] on filedocumented in this encounter Care Teams Sofa Cover Inspector Relationship Specialty Start Date End Date Provider, MD Panda [address] [place] [address] PCP - General Pediatrics 11/14/22 05/09/24 documented as of this encounter
--- OUTSIDE RECORDS SUMMARY | 2025-09-12 19:51 | XMS_ITS | Encounter Summary ---
Author Organization [facility] Address [address] [place] [address] Phone Care Team Providers Care Post Form Remover Name Role Phone Provider, Panda RIDDLE Primary Care Provider [phone] Encounter Details Date Type Department Care Team (Late st Contact Info) Description 06/27/2011 Documentation EM Family Medicine [address] [place] [address] Family Medicine, Physician [address] [place] [address] Social History Tobacco Use Types [...] on filedocumented in this encounter Care Teams Post Form Remover Relationship Specialty Start Date End Date Provider, MD Panda [address] [place] [address] PCP - General Pediatrics 11/14/22 05/09/24 documented as of this encounter
--- OUTSIDE RECORDS SUMMARY | 2025-09-12 19:51 | XMS_ITS | Encounter Summary ---
Author Organization [facility] Address [address] [place] [id number] Phone Care Team Providers Care Outpatient Receptionist Name Role Phone Provider, Panda RIDDLE Primary Care Provider [phone] Encounter Details Date Type Department Care Team (Late st Contact Info) Description 06/01/2017 Conversion Encounter [facility] [place] [address] [place], [place] [id number] Social History Tobacco Use Types Packs/Day Years [...] on filedocumented in this encounter Care Teams Outpatient Receptionist Relationship Specialty Start Date End Date Provider, MD Panda [address] [place] [id number] PCP - General Pediatrics 11/14/22 05/09/24 documented as of this encounter
[2025-09-12] MEDS: cefTRIAXone sodium 500 MG, Lidocaine HCl 1 % MPF 1 ML IM (19:57)
[2025-09-12 21:12] VITALS: BP 135/78; PULSE 73; RESP 18; TEMP 36.6; O2SAT 100
[2025-09-13 16:02] LABS: CT PCR NOT DETECTED (Not Detect.); NG PCR NOT DETECTED (Not Detect.)
[2025-09-13 16:04] LABS: Bacterial Vaginosis PCR POSITIVE (Negative); Candida Group PCR DETECTED (Not Detect); Candida glab krusei PCR NOT DETECTED (Not Detect); Trichomonas vaginalis PCR NOT DETECTED (Not Detect)
== END 2025-09-12 21:13 | disposition home or self-care (01) ==
PROVIDERS: Physician Assistant Medical; Emergency Provider Student in an Organized Health Care Education/Training Program; PCP Internal Medicine
DX: N89.8 Other specified noninflammatory disorders of vagina (principal); R79.89 Other specified abnormal findings of blood chemistry; R10.23 Pelvic and perineal pain bilateral; Z79.899 Other long term (current) drug therapy; Z20.2 Contact with and (suspected) exposure to infections with a predominantly sexual mode of transmission
CPT/HCPCS: 36415; 81001; 81025; 81515; 84702; 87086; 87491; 87591; 96372; 99284; J0696; J2003